=== PATIENT | male | born 2000 | race Caucasian/White ===

== ENCOUNTER 2023-08-10 15:41 | Outpatient (CLI) | payer OTHER, SELFPAY ==
[2023-08-10 15:37] LABS: Adenovirus,PCR Not Detected (NotDetected); Coronavirus 19, PCR Not Detected (NotDetected); Coronavirus 229E Not Detected (NotDetected); Coronavirus NL63 Not Detected (NotDetected); Coronavirus OC43 Not Detected (NotDetected); Coronovirus HKU1,PCR Not Detected (NotDetected); Human Metapneumovirus Not Detected (NotDetected); Influenza A, PCR Not Detected (NotDetected); Influenza AH1, 2009 Not Detected (NotDetected); Influenza AH1, PCR Not Detected (NotDetected); Influenza AH3,PCR Not Detected (NotDetected); Influenza B, PCR Not Detected (NotDetected); Parainfluenza 1, PCR Not Detected (NotDetected); Parainfluenza 2, PCR Not Detected (NotDetected); Parainfluenza 3, PCR Not Detected (NotDetected); Parainfluenza 4, PCR Not Detected (NotDetected); Respiratory Syncytial Virus Not Detected (NotDetected)
[2023-08-10 17:19] LABS: Rhinovirus/Enterovirus Detected (NotDetected)
== END 2023-08-10 23:59 ==
LOC: LAB.DROPOF 15:42
PROVIDERS: PCP Nurse Practitioner Family; Visit Provider Nurse Practitioner Family
DX: J02.9 Acute pharyngitis, unspecified (principal); R09.81 Nasal congestion; R09.82 Postnasal drip; B34.1 Enterovirus infection, unspecified
CPT/HCPCS: 87632; 87635

== ENCOUNTER 2024-03-27 20:14 | Emergency (ER) | payer OTHER, SELFPAY ==
[2024-03-27 20:15] VITALS: BP 143/99; PULSE 99; RESP 18; TEMP 36.8; O2SAT 98; BMI 28.7
[2024-03-27 21:00] VITALS: BP 153/107; PULSE 123; O2SAT 98
--- NOTE | 2024-03-27 21:15 | ED_ITS ---
<Statement entered by Chay Mackey MD - 03/27/24 23:39> I was consulted by the WILLI, and we discussed the complexity of problems being addressed. I approved the treatment and management plan for this patient's care in the emergency department, thus performing a substantial portion of the medical decision making. Chay Mackey MD Discharge Plan Disposition Patient Disposition: Home, Self-Care Condition: Good Prescriptions Prescriptions: New ciprofloxacin-dexamethasone 0.3-0.1 % drops,suspension 4 drp otic (ear) BID 7 Days Qty: 7.5 0RF Referrals Follow up/Referrals: Montse Villalobos APRN [Nurse Practitioner] - See instructions (Bilateral cerumen impaction with otitis externa left) Provider,MD Mei [Primary Care Provider] - See instructions Activity Restrictions/Add. Instructions Additional Instructions/Restrictions: Utilize eyedrops as we discussed in the left ear only. Please call in the morning to ENT to make your appointment. Return to ER for any worsening signs or symptoms as needed. Clinical Impressions Clinical Impression: Bilateral impacted cerumen Otitis externa Qualifiers: Otitis externa type: hemorrhagic Chronicity: acute Laterality: left Qualified Code(s): H60.322 - Hemorrhagic otitis externa, left ear Stand Alone Forms Stand Alone Forms: Work/School Release Instructions Patient Instructions: DI for Cerumen Impaction, DI for Otitis Externa Print Language Print Language: Croatian Discharge ED Provider: Chay Mackey General Adult HPI General Chief complaint: Ear Stated complaint: left ear pain Time Seen by Provider: 03/27/24 21:00 Mode of Arrival: Ambulatory Source of Information: Patient Limitations: No Limitations Description of Symptoms (Recalled from ER Triage Doc. by RN): Pt presents to the ED for L ear pain that started 3 days ago. Pt states he feels like he can't hear very well and it's painful on the inside. Pt is A&O*4 and family is bedside. History of Present Illness HPI narrative: Patient presents for evaluation of left hearing loss and ear pain. Patient wears hearing protection for work with in ear plugs. He reports that over the last 3 days he has had decreased hearing in his left ear however today began having significant pain. He denies any fever chills hemoptysis hematochezia melena nausea vomit diarrhea. Related Data Previous Rx's ?Medication ?Instructions ?Recorded ciprofloxacin 0.3 %-dexamethasone 4 drp otic (ear) BID 7 days #7.5 mL 03/27/24 0.1 % ear drops,suspension Allergies Allergy/AdvReac Type Severity Reaction Status Date / Time No Known Allergies Allergy Verified 08/10/23 09:52 [facility] Disclaimer: The information contained in this section may have been updated after the patient was seen, as this information can be updated by other users. Medical History (Updated 03/27/24 @ 21:32 by TOY Velazquez) No significant past medical history Surgical History (Updated 08/10/23 @ 09:53 by Eulalia Kiran CMA) No significant past surgical history Family History (Updated 08/10/23 @ 09:53 by Eulalia Kiran CMA) Family/Other No significant family history Social History (Updated 08/10/23 @ 09:54 by Eulalia Kiran CMA) Smoking Status: Unknown if ever smoked alcohol intake: current alcohol intake frequency: holidays/special occasions only substance use type: denies use current occupational status: employed Travel in the last 8 weeks: None ROS Obtained: Yes Systems reviewed as appropriate & no additional complaints except as documented Physical Exam General General appearance: alert and in no apparent distress ENT ENT exam: Present other (Bilateral canals are impacted with cerumen however left canal appears to be erythematous but no overt drainage) Neck Neck exam: Present normal inspection, full ROM and trachea midline; Absent lymphadenopathy Chest Chest inspection: Present symmetric chest wall rise Respiratory Respiratory exam: Present normal lung sounds bilaterally Cardiovascular Cardiovascular exam: Present regular rate and normal rhythm Neurological Exam Neurological exam: Present alert and oriented X3 Medical Decision Making Medical Records Screening: Per USPSTF and CDC recommendations, given the prevalence of disease in our region, it is our hospital?s policy to screen for HIV and viral Hepatitis for all patients aged 18 and over and those with ongoing risk factors. Christian Inquiry Pt receiving controlled substance: No Vital Signs: 03/27/24 20:15 03/27/24 21:00 Temperature 98.2 F Temperature Source Oral Pulse Rate 123 H Pulse Rate [Left] 99 H Respiratory Rate 18 Blood Pressure 153/107 H Blood Pressure [Right Arm] 143/99 H Blood Pressure Mean [Right Arm] 113 02 Sat by Pulse Oximetry 98 98 Oxygen Delivery Method Room Air Medical Decision Narrative: In summary patient is a 23-year-old male who presents to the emergency department for evaluation of left ear pain and hearing loss. Patient is hemodynamically stable upon arrival, afebrile. Physical exam is remarkable for bilateral cerumen impaction in the external auditory canals however the left canal is erythematous without overt evidence of infection I am unable to visualize either tympanic membrane. Differential diagnosis includes cerumen impaction versus tympanic membrane perforation versus otitis externa versus otitis media etc. Initial workup will be conducted with endoscopic exam. Initial interventions include hydroperoxide in the left canal. Initial workup reviewed by me under endoscopic guidance canal was cannulated with scoop attached to the scope. I was able to remove a small amount of cerumen however I was unable to visualize the tympanic membrane due to the deepness of the impa ction. Patient's external canal was friable and began to bleed slightly. I aborted the procedure as patient had significant discomfort and I was unable to safely visualize the tympanic membrane. Given this patient will be given a prescription for Cipro otic and referred to ear nose and throat tomorrow. Critical Care Critical Care Time Critical Care Time: No
[2024-03-27 21:34] VITALS: BP 143/100; PULSE 111; RESP 17; TEMP 36.8; O2SAT 98
== END 2024-03-27 21:38 | disposition home or self-care (01) ==
PROVIDERS: Emergency Provider Emergency Medicine
DX: H60.92 Unspecified otitis externa, left ear (principal); H61.23 Impacted cerumen, bilateral; H92.02 Otalgia, left ear
CPT/HCPCS: 99283

== ENCOUNTER 2024-05-24 13:55 | Outpatient (CLI) | payer OTHER, SELFPAY | END 2024-05-24 23:59 | disposition home or self-care (01) | LOC: LAB.DROPOF 05-25 10:44 | PROVIDERS: PCP Nurse Practitioner Family; Visit Provider Nurse Practitioner Family | DX: R09.81 Nasal congestion (principal) | CPT/HCPCS: 87070 ==

== ENCOUNTER 2024-08-15 15:00 | Outpatient (CLI) | payer OTHER, SELFPAY ==
[2024-08-15 14:50] LABS: Coronavirus 19, PCR Not Detected (NotDetected); Human Rhinovirus Not Detected (NotDetected); Influenza A, PCR Not Detected (NotDetected); Influenza B, PCR Not Detected (NotDetected); Respiratory Syncytial Virus Not Detected (NotDetected)
== END 2024-08-15 23:59 | disposition home or self-care (01) ==
LOC: LAB.DROPOF 15:01
PROVIDERS: PCP Nurse Practitioner Family; Visit Provider Nurse Practitioner Family
DX: R05.9 Cough, unspecified (principal)
CPT/HCPCS: 87631